=== PATIENT | male | born 1940 | race Caucasian/White ===

== ENCOUNTER 2016-07-05 06:01 | Emergency (ER) | payer MEDICARE, OTHER ==
[~2016-07-05] VITALS: Ht 180.3 cm; Wt 99.8 kg
[2016-07-05] MEDS ORDERED: ALBUTEROL SULFATE 2.5 MG/3 ML NEBU. NEB ONE ×2 (06:15→06:45)
[2016-07-05] MEDS ORDERED: ALBUTEROL SULFATE 8GM INHALER. ONE (06:26)
[2016-07-05] MEDS ORDERED: FUROSEMIDE 40 MG/4 ML VIAL IVP ONE (06:45)
[2016-07-05] MEDS ORDERED: ACETAMINOPHEN 325 MG TABLET PO ONE (06:45)
[2016-07-05 06:54] LABS: BASO % 0 % (0-3); EOS # 0.1 x10^3/uL (0.0-0.7); EOS % 1 % (0-3); HEMATOCRIT 40.5 % (39.0-53.0); HEMOGLOBIN 14.2 g/dL (13.0-17.5); LYMPH # 0.7 x10^3/uL (1.0-4.8); LYMPH % 5 % (24-48); MEAN CORPUSCULAR HEMOGLOBIN 32 pg (25-35); MEAN CORPUSCULAR HGB CONC 35 g/dL (31-37); MEAN CORPUSCULAR VOLUME 92 fL (79-100); MONO # 0.8 x10^3/uL (0.0-1.1); MONO % 5 % (0-9); NEUT # 13.8 x10^3uL (1.8-7.7); NEUT % 89 % (31-73); PLATELET COUNT 198 x10^3/uL (140-400); RED BLOOD COUNT 4.42 x10^6/uL (4.30-5.70); RED CELL DISTRIBUTION WIDTH 13.3 % (11.5-14.5); WHITE BLOOD COUNT 15.4 x10^3/uL (4.0-11.0)
--- NOTE | 2016-07-05 06:54 | ED.ADGEN ---
Adult General Chief Complaint Chief Complaint Shortness of air HPI HPI Patient is a 76-year-old male presents with shortness of air, generalized weakness, and fatigue. Patient states symptoms began yesterday and progressed overnight. This morning when getting out of the bed patient felt weak and slid to down a wall to the floor. He denies hitting his head or neck, but reports chronic neck pain and is on Plavix. On EMS arrival, the patient was hypoxic with O2 saturation in the low 80s. Patient reports cough, no fever chills or sweats. Reports feeling generally weak. Denies chest pain, chest tightness increased leg pain or swelling. History of CAD, CABG and congestive heart failure. Patient denies increased leg pain or swelling. No history of PE or DVT. Patient's currently traveling from out of state and is visiting family members. Review of Systems Review of Systems ROS as per HPI. Current Medications Current Medications Current Medications Medications (Trade) Dose Ordered Sig/Fernando Start Time Stop Time Status Last Admin Dose Admin Acetaminophen (Tylenol) 650 mg 1X ONCE 07/05/16 06:45 07/05/16 06:46 DC Albuterol Sulfate (Ventolin Hfa) 60 puff STK-MED ONCE 07/05/16 06:26 07/05/16 06:29 DC Albuterol Sulfate (Ventolin) 2.5 mg 1X ONCE 07/05/16 06:45 07/05/16 06:46 DC Furosemide (Lasix) 40 mg 1X ONCE 07/05/16 06:45 07/05/16 06:46 DC Iohexol (Omnipaque 300 Mg/ml) 75 ml 1X ONCE 07/05/16 08:00 07/05/16 08:01 Levofloxacin/ Dextrose 150 ml @ 150 mls/hr 1X ONCE 07/05/16 06:45 07/05/16 07:44 DC Allergies Allergies Allergies Coded Allergies Type Severity Reaction Last Updated Verified No Known Drug Allergies 07/05/16 No Physical Exam Physical Exam Constitutional: Acutely ill and weak appearing HENT: Normocephalic, atraumatic, bilateral external ears normal, oropharynx moist. Eyes: PERRL, conjunctiva normal. Neck: Normal range of motion. Cardiovascular: Regular rate. Lungs & Thorax: Abrasions nonlabored, mild tachypnea, coarse breath sounds throughout all benz with rales on right and lower midlung benz. Abdomen: Bowel sounds normal, soft, no tenderness. Skin: Warm, dry. Back: No tenderness, no CVA tenderness. Extremities: Trace peripheral edema, negative Homans signs. Neurologic: Alert and oriented X 3, normal motor function, normal sensory function, no focal deficits noted. Psychologic: Affect normal, judgement normal, mood normal. Current Patient Data Vital Signs Vital Signs Date Time Temp Pulse Resp B/P (MAP) Pulse Ox O2 Delivery O2 Flow Rate FiO2 07/05/16 07:08 102.2 94 22 92 Nasal Cannula 3.0 Lab Results Laboratory Tests Test 07/05/16 06:31 07/05/16 06:38 07/05/16 07:01 White Blood Count 15.4 x10^3/uL (4.0-11.0) H Red Blood Count 4.42 x10^6/uL (4.30-5.70) Hemoglobin 14.2 g/dL (13.0-17.5) Hematocrit 40.5 % (39.0-53.0) Mean Corpuscular Volume 92 fL (79-100) Mean Corpuscular Hemoglobin 32 pg (25-35) Mean Corpuscular Hemoglobin Concent 35 g/dL (31-37) Red Cell Distribution Width 13.3 % (11.5-14.5) Platelet Count 198 x10^3/uL (140-400) Neutrophils (%) (Auto) 89 % (31-73) H Lymphocytes (%) (Auto) 5 % (24-48) L Monocytes (%) (Auto) 5 % (0-9) Eosinophils (%) (Auto) 1 % (0-3) Basophils (%) (Auto) 0 % (0-3) Neutrophils # (Auto) 13.8 x10^3uL (1.8-7.7) H Lymphocytes # (Auto) 0.7 x10^3/uL (1.0-4.8) L Monocytes # (Auto) 0.8 x10^3/uL (0.0-1.1) Eosinophils # (Auto) 0.1 x10^3/uL (0.0-0.7) Basophils # (Auto) 0.0 x10^3/uL (0.0-0.2) Segmented Neutrophils % 90 % (35-66) H Band Neutrophils % 1 % (0-9) Lymphocytes % 5 % (24-48) L Monocytes % 3 % (0-10) Eosinophils % 1 % (0-5) Platelet Estimate Adequate (ADEQUATE) Large Platelets Occ D-Dimer (Anabella) 1.18 mg/L (0.00-0.50) H Urine Collection Type Unknown Urine Color Yellow Urine Clarity Hazy Urine pH 7.5 Urine Specific [place] 1.020 Urine Protein 100 mg/dl (NEG-TRACE) Urine Glucose (UA) Neg mg/dL (NEG) Urine Ketones (Stick) Neg mg/dL (NEG) Urine Blood Mod (NEG) Urine Nitrite Neg (NEG) Urine Bilirubin Neg (NEG) Urine Urobilinogen Dipstick 0.2 mg/dL (0.2 mg/dL) Urine Leukocyte Esterase Neg (NEG) Urine RBC 20-40 /HPF (0-2) Urine WBC 0 /HPF (0-4) Urine Squamous Epithelial Cells Occ /LPF Urine Bacteria 0 /HPF (0-FEW) Urine Mucus Slight /LPF Sodium Level 138 mmol/L (136-145) Potassium Level 3.5 mmol/L (3.5-5.1) Chloride Level 102 mmol/L (98-107) Carbon Dioxide Level 27 mmol/L (21-32) Anion Gap 9 (6-14) Blood Urea Nitrogen 19 mg/dL (8-26) Creatinine 1.4 mg/dL (0.7-1.3) H Estimated GFR (Cockcroft-Gault) 49.5 BUN/Creatinine Ratio 14 (6-20) Glucose Level 133 mg/dL (70-99) H Calcium Level 8.4 mg/dL (8.5-10.1) L Total Bilirubin 1.4 mg/dL (0.2-1.0) H Aspartate Amino Transferase (AST) 14 U/L (15-37) L Alanine Aminotransferase (ALT) 26 U/L (16-63) Alkaline Phosphatase 81 U/L (46-116) Creatine Kinase 86 U/L (39-308) Troponin I Quantitative 0.046 ng/mL (0-0.055) HK-Qzn-C-Type Natriuretic Peptide 2346 pg/mL (0-124) H Total Protein 7.4 g/dL (6.4-8.2) Albumin 3.3 g/dL (3.4-5.0) L Albumin/Globulin Ratio 0.8 (1.0-1.7) L POC Arterial pH 7.52 (7.35-7.45) H Arterial Blood pH (Temp corrected) 7.49 POC Arterial pCO2 33 mmHg (35-45) L Arterial Blood pCO2 (Temp correct) 36 mmHg POC Arterial pO2 76 mmHg (75-100) Arterial Blood pO2 (Temp corrected) 87 mmHg Arterial Blood HCO3 27 mmol/L (21-28) POC Arterial Blood O2 Sat 97 % (95-99) POC FiO2 32.0 Lactic Acid Level 1.5 mmol/L (0.4-2.0) EKG EKG [EKG: Sinus rhythm, rate 94, no acute ST-T wave changes.] Radiology/Procedures Radiology/Procedures [Asked x-ray, pulmonary vascular congestion, cardiomegaly and multilobar pneumonia] Course & Med Decision Making Course & Med Decision Making Pertinent Labs and Imaging studies reviewed. (See chart for details) [Lasix, IV abx and breathing tx given. She maintaining O2 sat greater than 92% on 3 L nasal cannula. Transferred to [facility] and accepted per Dr. Law. Final Impression Final Impression [1. Acute respiratory failure with hypoxia 2. Pneumonia 3. CHF] Problems: Dragon Disclaimer Dragon Disclaimer This electronic medical record was generated, in whole or in part, using a voice recognition dictation system. HERNAN GERMAN DO July 05, 2016 06:54
[2016-07-05 07:11] LABS: ALBUMIN 3.3 g/dL (3.4-5.0); ALBUMIN/GLOBULIN RATIO 0.8 (1.0-1.7); CALCIUM 8.4 mg/dL (8.5-10.1); CREATININE 1.4 mg/dL (0.7-1.3); GFR 49.5; POTASSIUM 3.5 mmol/L (3.5-5.1); TOTAL BILIRUBIN 1.4 mg/dL (0.2-1.0); TOTAL PROTEIN 7.4 g/dL (6.4-8.2)
--- NOTE | 2016-07-05 07:12 | EKG ---
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
--- NOTE | 2016-07-05 07:15 | RAD ---
Portable chest, 07/05/2016: History: Shortness of breath There has been a previous median sternotomy. A left-sided transvenous pacemaker is in place with 3 leads extending into the heart. The left ventricle is enlarged. There is calcific plaquing of the aorta. There are mild patchy infiltrates in the lateral aspect of the right midlung and in the left infrahilar region. No pleural fluid or pneumothorax is evident. IMPRESSION: Mild patchy pulmonary infiltrates suggesting pulmonary edema versus pneumonia.
[2016-07-05 07:27] LABS: BACTERIA,URINE 0 /HPF (0-FEW); BILIRUBIN,URINE NEG (NEG); CLARITY,URINE HAZY; COLOR,URINE YELLOW; GLUCOSE,URINE NEG (NEG); NITRITE,URINE NEG (NEG); RBC,URINE 20-40 /HPF (0-2); SQUAMOUS EPITHELIAL CELL,UR OCC /LPF; UROBILINOGEN,URINE 0.2 mg/dL (0.2 mg/dL); WBC,URINE 0 /HPF (0-4)
[2016-07-05 07:31] LABS: % BANDS 1 % (0-9); % EOS 1 % (0-5); % LYMPHS 5 % (24-48); % MONOS 3 % (0-10); % SEGS 90 % (35-66); PLT ESTIMATE ADEQUATE (ADEQUATE)
[2016-07-05] MEDS ORDERED: IOHEXOL 300 MG/ML 75 ML VIAL. IV ONE (08:00)
[2016-07-05 08:38] VITALS: BP 137/74
--- NOTE | 2016-07-05 08:57 | RAD ---
Examination: CT angiogram of the chest History: History of shortness of breath Comparison: None available Technique: Axial CT and radiographic images were performed with IV contrast. Coronal and sagittal 3-D MIP reformats are performed PQRS Compliance Statement: One or more of the following individualized dose reduction techniques were utilized for this examination: 1. Automated exposure control 2. Adjustment of the mA and/or kV according to patient size 3. Use of iterative reconstruction technique Findings: A large heterogeneous appearance of the thyroid gland particularly the right lobe of the thyroid gland extending into the retrosternal region likely multinodular goiter with enlarged right lobe of the thyroid gland. Multiple enlarged mediastinal lymph nodes are identified with the largest measuring 1.9 cm in the pretracheal region. Diffuse coronary artery calcifications identified. Moderate aortic atherosclerosis. The evaluation of the pulmonary artery is limited as there is only minimal amount of contrast within the pulmonary artery and its branches. Grossly no evidence of filling defect identified in the main pulmonary artery and right and left main pulmonary arteries. The visualized lobar, segmental branches of the pulmonary arteries demonstrate no evidence of filling defects, however the distal segmental pulmonary arterial branches evaluation is limited. Mild cardiomegaly. No evidence of pericardial effusion. Small hiatal hernia is identified. Mildly enlarged bilateral hilar lymph nodes identified. Diffuse groundglass airspace opacities identified in the bilateral lungs likely pulmonary edema or groundglass infiltrates with small bilateral pleural effusions. There is minimal tiny there is a small 1 cm enhancing focus identified in the right lobe of the liver. The visualized spleen, adrenals grossly appears unremarkable. Cystic structure identified in the left kidney likely cysts. The caliber of the aorta grossly appears unremarkable. Moderate aortic atherosclerosis. Left-sided cardiac pacer is identified. Moderate degenerative changes identified in the thoracic spine. There is moderate compression change of L1 vertebral body. Impression: 1. Limited examination due to minimal amount of contrast in the pulmonary arteries however grossly no evidence of central pulmonary embolism. 2. Cardiomegaly with diffuse bilateral lung groundglass airspace opacities likely most likely congestive changes or groundglass infiltrates. Small bilateral pleural effusions. 3. Enlarged mediastinal and hilar lymph nodes probably reactive. 4. Diffuse carotid artery calcifications. 5. Small hiatal hernia. 6. 1 cm enhancing lesion identified in the right lobe of the liver is difficult to characterize, could be a hemangioma. A follow-up nonemergent ultrasound can be considered. 7. Left renal cysts. 8. Enlarged heterogeneous appearing right lobe of thyroid gland probably multinodular goiter with retrosternal extension. 9. Moderate compression change of L1 vertebral body.
== END 2016-07-05 08:39 | disposition short-term general hospital (02) ==
LOC: ER 06:01
DX: J96.01 Acute respiratory failure with hypoxia (principal); I50.9 Heart failure, unspecified; J18.9 Pneumonia, unspecified organism; I25.810 Atherosclerosis of coronary artery bypass graft(s) without angina pectoris; Z95.0 Presence of cardiac pacemaker
CPT/HCPCS: 36415; 71010; 71275; 80053; 81001; 82550; 82803; 83605; 83880; 84484; 85007; 85027; 85379; 87040; 93005; 94640; 99285; Q9967